=== PATIENT | male | born 1965 | race Caucasian/White ===

== ENCOUNTER 2018-01-23 10:03 | Emergency (ER) | payer MEDICARE, OTHER ==
[~2018-01-23] VITALS: Ht 195.6 cm; Wt 120.0 kg
[~2018-01-23 10:03] MED LIST: CLOT15CR5 TOP; GABA-338 PO; NORCO10T PO; OXYC5CAP19 PO; WHEE1EAC12 MC
[2018-01-23] MEDS ORDERED: proparacaine 0.5% ophthalmic drops 15ml RIGHTEYE ONE (10:55)
[2018-01-23] MEDS ORDERED: GENT5DRO4 EACHEYE (11:53)
[2018-01-23 12:20] VITALS: BP 154/81
== END 2018-01-23 12:21 | disposition home or self-care (01) ==
LOC: ER 10:03
DX: T15.01XA Foreign body in cornea, right eye, initial encounter (principal); G89.29 Other chronic pain; Z90.49 Acquired absence of other specified parts of digestive tract; Z98.890 Other specified postprocedural states; Z79.899 Other long term (current) drug therapy; W45.8XXA Other foreign body or object entering through skin, initial encounter; Y93.89 Activity, other specified; Y92.89 Other specified places as the place of occurrence of the external cause; Y99.8 Other external cause status
CPT/HCPCS: 65220; 99284

== ENCOUNTER 2018-11-28 17:28 | Emergency (ER) | payer MEDICARE, OTHER ==
[~2018-11-28] VITALS: Ht 195.6 cm; Wt 136.4 kg
[~2018-11-28 17:28] MED LIST changes: +GENT5DRO4 EACHEYE
--- NOTE | 2018-11-28 17:55 | NUR ---
PATIENT STATED THAT HE WAS "MESSING WITH THE CAST AFTER GETTING IT WET"
--- NOTE | 2018-11-28 18:56 | NUR ---
PT REPORTS TO ME THAT HE IS LEAVING AT 1900. OJ [place] NOTIFIED.
[2018-11-28] MEDS ORDERED: ketorolac trometh inj. 60 MG/2 ML VIAL IM ONE (19:05)
[2018-11-28] MEDS ORDERED: oxyCODONE/APAP 10/325mg tablet PO ONE (19:35)
[2018-11-28 20:06] VITALS: BP 159/66
== END 2018-11-28 21:34 | disposition home or self-care (01) ==
LOC: ER 17:29
DX: L76.82 Other postprocedural complications of skin and subcutaneous tissue (principal); G89.29 Other chronic pain; F17.200 Nicotine dependence, unspecified, uncomplicated; Z90.49 Acquired absence of other specified parts of digestive tract; Z98.890 Other specified postprocedural states; Z79.899 Other long term (current) drug therapy; Y83.8 Other surgical procedures as the cause of abnormal reaction of the patient, or of later complication, without mention of misadventure at the time of the procedure; Y92.89 Other specified places as the place of occurrence of the external cause
CPT/HCPCS: 29515; 73620; 96372; 99284; J1885

== ENCOUNTER 2019-01-10 21:37 | Emergency (ER) | payer MEDICARE ==
[~2019-01-10] VITALS: Ht 195.6 cm; Wt 143.2 kg
[2019-01-10 22:53] LABS: ALANINE AMINOTRANSFERASE 33 U/L (12-78); ALBUMIN 3.9 G/DL (3.4-5.0); ALBUMIN/GLOBULIN RATIO 0.9 (1.1-1.5); ALKALINE PHOSPHATASE 117 IU/L (46-116); ANION GAP 11 (8-16); ASPARTATE AMINO TRANSFERASE 18 U/L (10-37); BILIRUBIN,TOTAL 0.3 MG/DL (0.1-1.0); BLOOD UREA NITROGEN 29 MG/DL (7-18); BUN/CREATININE RATIO 20.7 (5.4-32.0); CALCIUM 9.6 MG/DL (8.5-10.1); CHLORIDE 99 MMOL/L (99-107); GLUCOSE 128 MG/DL (70-104); POTASSIUM 4.3 MMOL/L (3.5-5.1); SODIUM 137 MMOL/L (135-145); TOTAL CARBON DIOXIDE 26.9 MMOL/L (24-32); TOTAL PROTEIN 8.2 G/DL (6.4-8.2); eGFR 53 ML/MIN
[2019-01-10 22:53] LABS: BASOPHILS # (AUTO) 0.1 X10'3 (0-0.2); EOSINOPHILS # (AUTO) 0.5 X10'3 (0-0.9); EOSINOPHILS % (AUTO) 3.9 % (0-6); HEMATOCRIT 40.4 % (42.0-52.0); HEMOGLOBIN 13.6 g/dl (14.0-17.9); LYMPHOCYTES # (AUTO) 3.9 X10'3 (1.1-4.8); LYMPHOCYTES % (AUTO) 33.8 % (21-51); MEAN CORPUSCULAR HEMOGLOBIN 29.7 PG (27.0-31.0); MEAN CORPUSCULAR HGB CONC 33.7 g/dL (33.0-36.5); MEAN CORPUSCULAR VOLUME 88.2 FL (78-98); MEAN PLATELET VOLUME 8.2 FL (7.4-10.4); MONOCYTES # (AUTO) 0.7 X10'3 (0-0.9); MONOCYTES % (AUTO) 6.5 % (2-12); NEUTROPHILS # (AUTO) 6.3 X10'3 (1.8-7.7); NEUTROPHILS % (AUTO) 54.8 % (42-75); PLATELET COUNT 417 X10'3 (140-440); RED BLOOD COUNT 4.58 X10'6 (4.70-6.10); RED CELL DISTRIBUTION WIDTH 14.3 % (11.5-14.5); WHITE BLOOD COUNT 11.5 X10'3 (4.5-11.0)
[2019-01-10 23:00] LABS: PARTIAL THROMBOPLASTIN TIME 30 SECONDS (22-32)
[2019-01-10 23:59] VITALS: BP 132/76
== END 2019-01-11 00:03 | disposition home or self-care (01) ==
LOC: ER 21:38
DX: L08.89 Other specified local infections of the skin and subcutaneous tissue (principal); M79.671 Pain in right foot; G89.29 Other chronic pain; L97.519 Non-pressure chronic ulcer of other part of right foot with unspecified severity; Z90.49 Acquired absence of other specified parts of digestive tract; Z98.890 Other specified postprocedural states; Z79.899 Other long term (current) drug therapy
CPT/HCPCS: 36415; 80053; 84145; 85025; 85610; 85730; 87040; 93005; 99284

== ENCOUNTER 2019-05-19 15:06 | Emergency (ER) | payer MEDICARE ==
[~2019-05-19] VITALS: Ht 182.9 cm; Wt 154.6 kg
[2019-05-19 15:23] LABS: CLARITY,URINE SLIGHTLY CLOUDY (Clear); COLOR,URINE YELLOW (Yellow); GLUCOSE, URINE NEGATIVE (Neg); KETONES,URINE NEGATIVE (Neg); LEUKOCYTE ESTERASE ,URINE SMALL (Neg); NITRITES, URINE NEGATIVE (Neg); OCCULT BLOOD,URINE LARGE (Neg); PROTEIN,URINE NEGATIVE (Neg); UROBILINOGEN,URINE 0.2 E.U/dL (0.2-1.0)
[2019-05-19 15:26] LABS: UA COLLECTION TYPE VOIDED
[2019-05-19 15:34] LABS: BACTERIA,URINE 1+ /HPF (Neg); SQUAMOUS EPITHELIAL CELL,UR MODERATE /LPF (FEW)
[2019-05-19 15:35] LABS: WBC CLUMPS,URINE FEW /HPF (NEGATIVE)
[2019-05-19 15:36] LABS: MUCUS STRANDS FEW /LPF (Neg)
[2019-05-19] MEDS ORDERED: diphenhydrAMINE 25mg capsule PO ONE (15:55)
[2019-05-19] MEDS ORDERED: ketorolac tromethamine 15mg/ml inj. IM ONE (15:55)
[2019-05-19] MEDS ORDERED: proCHLORperazine 10 MG/2 ml inj IM ONE (15:55)
[2019-05-19] MEDS ORDERED: CEPH-572 PO (16:35)
[2019-05-19 16:46] VITALS: BP 158/74
== END 2019-05-19 16:47 | disposition home or self-care (01) ==
LOC: ER 15:06
DX: N39.0 Urinary tract infection, site not specified (principal); R31.9 Hematuria, unspecified; I10 Essential (primary) hypertension; G89.29 Other chronic pain; Z90.49 Acquired absence of other specified parts of digestive tract; Z98.890 Other specified postprocedural states
CPT/HCPCS: 81001; 87088; 96372; 99284; J0780; J1885; Q0163

== ENCOUNTER 2019-05-31 01:21 | Emergency (ER) | payer MEDICARE ==
[~2019-05-31] VITALS: Ht 195.6 cm; Wt 133.0 kg
--- NOTE | 2019-05-31 01:53 | NUR ---
pt requesting water and something for the pain before he urinates. advised pt that I was unable to give him anything for pain until the doctor sees him.
[2019-05-31 02:17] LABS: CLARITY,URINE SLIGHTLY CLOUDY (Clear); COLOR,URINE YELLOW (Yellow); GLUCOSE, URINE NEGATIVE (Neg); KETONES,URINE NEGATIVE (Neg); LEUKOCYTE ESTERASE ,URINE SMALL (Neg); NITRITES, URINE NEGATIVE (Neg); OCCULT BLOOD,URINE TRACE-INTACT (Neg); PH,URINE 5.5 (4.8-8.0); PROTEIN,URINE 30 mg/dl (Neg); UROBILINOGEN,URINE 0.2 E.U/dL (0.2-1.0)
[2019-05-31] MEDS ORDERED: LIDOcaine 2% 10ml TOPICAL JELLY (Urojet) MM ONE (02:30)
[2019-05-31 02:31] LABS: UA COLLECTION TYPE VOIDED
[2019-05-31 02:34] LABS: MUCUS STRANDS MANY /LPF (Neg); SQUAMOUS EPITHELIAL CELL,UR MODERATE /LPF (FEW)
[2019-05-31 02:36] LABS: RBC,URINE 0-2 /HPF (0-2); WBC,URINE 20-30 /HPF (0-4)
[2019-05-31 02:37] LABS: BACTERIA,URINE FEW /HPF (Neg)
[2019-05-31 03:01] LABS: BASOPHILS % (AUTO) 0.5 % (0-1); EOSINOPHILS # (AUTO) 0.1 X10'3 (0-0.9); EOSINOPHILS % (AUTO) 1.2 % (0-6); HEMATOCRIT 40.1 % (42.0-52.0); HEMOGLOBIN 13.7 g/dl (14.0-17.9); LYMPHOCYTES # (AUTO) 1.3 X10'3 (1.1-4.8); LYMPHOCYTES % (AUTO) 13.6 % (21-51); MEAN CORPUSCULAR HEMOGLOBIN 31.1 PG (27.0-31.0); MEAN CORPUSCULAR HGB CONC 34.1 g/dL (33.0-36.5); MEAN CORPUSCULAR VOLUME 91.3 FL (78-98); MEAN PLATELET VOLUME 8.2 FL (7.4-10.4); MONOCYTES # (AUTO) 0.8 X10'3 (0-0.9); MONOCYTES % (AUTO) 8.2 % (2-12); NEUTROPHILS # (AUTO) 7.1 X10'3 (1.8-7.7); NEUTROPHILS % (AUTO) 76.5 % (42-75); PLATELET COUNT 231 X10'3 (140-440); RED BLOOD COUNT 4.39 X10'6 (4.70-6.10); WHITE BLOOD COUNT 9.2 X10'3 (4.5-11.0)
--- NOTE | 2019-05-31 03:09 | NUR ---
pt requesting dilaudid - informed pt we don't carry dilaudid in the ER - he then requests Tylenol or iburpofen or excedrin.
[2019-05-31 03:13] LABS: ALANINE AMINOTRANSFERASE 57 U/L (12-78); ALBUMIN 3.4 G/DL (3.4-5.0); ALBUMIN/GLOBULIN RATIO 0.9 (1.1-1.5); ALKALINE PHOSPHATASE 84 IU/L (46-116); ANION GAP 8 (8-16); ASPARTATE AMINO TRANSFERASE 28 U/L (10-37); BILIRUBIN,TOTAL 0.7 MG/DL (0.1-1.0); BLOOD UREA NITROGEN 16 MG/DL (7-18); BUN/CREATININE RATIO 10.8 (5.4-32.0); CALCIUM 8.7 MG/DL (8.5-10.1); CHLORIDE 98 MMOL/L (99-107); CREATININE 1.48 MG/DL (0.60-1.10); GLUCOSE 118 MG/DL (70-104); POTASSIUM 4.6 MMOL/L (3.5-5.1); SODIUM 133 MMOL/L (135-145); TOTAL CARBON DIOXIDE 26.8 MMOL/L (24-32); TOTAL PROTEIN 7.3 G/DL (6.4-8.2); eGFR 50 ML/MIN
[2019-05-31] MEDS ORDERED: phenazopyridine 100mg tablet PO ONE (03:45)
[2019-05-31] MEDS ORDERED: ciprofloxacin 250mg tablet PO ONE (03:45)
[2019-05-31] MEDS ORDERED: PHEN-716 PO (04:04)
[2019-05-31] MEDS ORDERED: CIPR-230 PO (04:04)
[2019-05-31 04:14] VITALS: BP 148/78
== END 2019-05-31 04:10 | disposition home or self-care (01) ==
LOC: ER 01:22
DX: N39.0 Urinary tract infection, site not specified (principal); I10 Essential (primary) hypertension; G89.29 Other chronic pain; Z90.49 Acquired absence of other specified parts of digestive tract; Z98.890 Other specified postprocedural states; Z79.899 Other long term (current) drug therapy; Z79.2 Long term (current) use of antibiotics
CPT/HCPCS: 36415; 80053; 81001; 85025; 87088; 99284

== ENCOUNTER 2019-07-09 21:43 | Emergency (ER) | payer MEDICARE ==
[~2019-07-09] VITALS: Ht 193 cm; Wt 150.0 kg
[~2019-07-09 21:43] MED LIST changes: +PHEN-716 PO
[2019-07-09] MEDS ORDERED: sulfamethoxazole/trimethoprim DS (800/160mg) tablet PO ONE (22:50)
[2019-07-09] MEDS ORDERED: BACDS PO (22:51)
[2019-07-10 00:10] VITALS: BP 173/101
== END 2019-07-10 00:17 | disposition home or self-care (01) ==
LOC: ER 21:44
DX: R60.0 Localized edema (principal); L53.9 Erythematous condition, unspecified; I10 Essential (primary) hypertension; G89.29 Other chronic pain; Z90.49 Acquired absence of other specified parts of digestive tract; Z98.890 Other specified postprocedural states; Z79.2 Long term (current) use of antibiotics; Z79.899 Other long term (current) drug therapy
CPT/HCPCS: 99283

== ENCOUNTER 2019-08-01 00:38 | Emergency (ER) | payer MEDICARE ==
[~2019-08-01] VITALS: Ht 195.6 cm; Wt 143.0 kg
[2019-08-01 00:55] VITALS: BP 165/85
== END 2019-08-01 04:46 | disposition home or self-care (01) ==
LOC: ER 00:38
DX: R22.42 Localized swelling, mass and lump, left lower limb (principal); I10 Essential (primary) hypertension; G89.29 Other chronic pain; Z98.890 Other specified postprocedural states; Z90.49 Acquired absence of other specified parts of digestive tract
CPT/HCPCS: 29515; 93971; 99284

== ENCOUNTER 2021-12-17 01:46 | Emergency (ER) | payer BC, MEDICARE ==
[~2021-12-17] VITALS: Ht 195.6 cm; Wt 145.4 kg
[~2021-12-17 01:46] MED LIST changes: +ALBU8.5H17 INH; +ATOR20TA10 PO; -CLOT15CR5 TOP; -GABA-338 PO; -GENT5DRO4 EACHEYE; +LOSA1TAB9 PO; -NORCO10T PO; -OXYC5CAP19 PO; -PHEN-716 PO; -WHEE1EAC12 MC
[2021-12-17] MEDS ORDERED: ofloxacin 0.3% 5ml otic drops RIGHT EAR STA (02:09)
[2021-12-17] MEDS ORDERED: OFLO5DRO5 RIGHT EAR (02:11)
[2021-12-17] MEDS ORDERED: IBUP-1984 PO (02:29)
[2021-12-17] MEDS ORDERED: ibuprofen tablet 400 MG TABLET PO ONE (02:30)
[2021-12-17 02:31] VITALS: BP 130/92
--- NOTE | 2021-12-17 02:47 | NUR ---
Pharmacy out of ear drops, Carlie made aware. Patient to be discharged without being medicated, will mushroom picker his ear drops at his pharmacy in the morning.
== END 2021-12-17 02:50 | disposition home or self-care (01) ==
LOC: ER 01:46
DX: H72.91 Unspecified perforation of tympanic membrane, right ear (principal); H92.01 Otalgia, right ear; I10 Essential (primary) hypertension; G89.29 Other chronic pain; Z90.89 Acquired absence of other organs; Z90.49 Acquired absence of other specified parts of digestive tract; Z98.890 Other specified postprocedural states; Z72.89 Other problems related to lifestyle; Z79.2 Long term (current) use of antibiotics; Z79.899 Other long term (current) drug therapy
CPT/HCPCS: 99283

== ENCOUNTER 2023-04-28 12:09 | Day surgery (SDC) | payer MEDICARE, MEDICAID ==
[2023-04-24 08:57] LABS: BASOPHILS % (AUTO) 0.5 % (0-1); EOSINOPHILS # (AUTO) 0.1 X10'3 (0-0.9); EOSINOPHILS % (AUTO) 1.9 % (0-6); HEMATOCRIT 36.2 % (42.0-52.0); HEMOGLOBIN 12.2 g/dl (14.0-17.9); LYMPHOCYTES # (AUTO) 1.7 X10'3 (1.1-4.8); LYMPHOCYTES % (AUTO) 24.5 % (21-51); MEAN CORPUSCULAR HEMOGLOBIN 32.1 PG (27.0-31.0); MEAN CORPUSCULAR HGB CONC 33.8 g/dL (33.0-36.5); MEAN CORPUSCULAR VOLUME 94.9 FL (78-98); MONOCYTES # (AUTO) 0.5 X10'3 (0-0.9); MONOCYTES % (AUTO) 7.5 % (2-12); NEUTROPHILS # (AUTO) 4.6 X10'3 (1.8-7.7); NEUTROPHILS % (AUTO) 65.6 % (42-75); PLATELET COUNT 300 X10'3 (140-440); RED BLOOD COUNT 3.82 X10'6 (4.70-6.10); RED CELL DISTRIBUTION WIDTH 15.7 % (11.5-14.5)
[2023-04-24 09:08] LABS: APTT 34 SECONDS (22-32)
[2023-04-24 09:21] LABS: ALBUMIN 3.6 G/DL (3.4-5.0); ANION GAP 11 (8-16); BLOOD UREA NITROGEN 32 MG/DL (7-18); BUN/CREATININE RATIO 19.3 (10.0-20.0); CALCIUM 9.4 MG/DL (8.5-10.1); CHLORIDE 99 MMOL/L (99-107); CREATININE 1.66 MG/DL (0.60-1.10); GLUCOSE 96 MG/DL (70-104); POTASSIUM 3.7 MMOL/L (3.5-5.1); SODIUM 138 MMOL/L (135-145); TOTAL CARBON DIOXIDE 27.6 MMOL/L (24-32); eGFR 43 ML/MIN
[~2023-04-28] VITALS: Ht 195.6 cm; Wt 133.4 kg
[2023-04-28] VITALS (13 sets, daily range): BP systolic 142–158; BP diastolic 77–98; PULSE 87–114; RESP 14–16; TEMP 98.3; O2SAT 92–100
[~2023-04-28 12:09] MED LIST changes: +LOSA-422 PO; -LOSA1TAB9 PO; +OFLO5DRO5 RIGHT EAR
[2023-04-28] MEDS ORDERED: fentaNYL/PF 50MCG/1 ML 2ML syringe IV ONE (12:35)
[2023-04-28] MEDS ORDERED: MIDAZolam 1mg/ml 10ml vial IV ONE (12:35)
[2023-04-28] MEDS ORDERED: normal saline 1000ml 1,000 ML IV SCH (12:35)
[2023-04-28] MEDS ORDERED: FLO0.4C PO (12:58)
[2023-04-28] MEDS ORDERED: LOSA25TA41 PO (13:01)
[2023-04-28] MEDS ORDERED: METO5TAB7 PO (13:01)
[2023-04-28] MEDS ORDERED: FLUT1BLS4 INH (13:01)
[2023-04-28] MEDS ORDERED: PRAV10TA39 PO (13:01)
[2023-04-28] MEDS ORDERED: PANT40TA54 PO (13:02)
[2023-04-28] MEDS ORDERED: TRAZ-256 PO (13:02)
[2023-04-28] MEDS ORDERED: MULT-1085 PO (13:03)
[2023-04-28] MEDS ORDERED: FURO40TA4 PO (13:04)
[2023-04-28] MEDS ORDERED: FERR325T28 PO (13:05)
[2023-04-28] MEDS ORDERED: APIX5TAB3 PO (13:06)
[2023-04-28] MEDS ORDERED: FAMO20TA8 PO (13:06)
[2023-04-28] MEDS ORDERED: CHOL10008 PO (13:07)
[2023-04-28] MEDS ORDERED: AMI200T PO (13:08)
[2023-04-28] MEDS ORDERED: METO-384 PO (13:08)
[2023-04-28] MEDS ORDERED: ASCO500C17 PO (13:10)
== END 2023-04-28 15:45 | disposition home or self-care (01) ==
LOC: SSTAY O 12:09
PROVIDERS: ATTEND Student in an Organized Health Care Education/Training Program
DX: I48.91 Unspecified atrial fibrillation (principal); I13.0 Hypertensive heart and chronic kidney disease with heart failure and stage 1 through stage 4 chronic kidney disease, or unspecified chronic kidney disease; I50.9 Heart failure, unspecified; N18.9 Chronic kidney disease, unspecified; I48.92 Unspecified atrial flutter; E78.5 Hyperlipidemia, unspecified; I35.0 Nonrheumatic aortic (valve) stenosis; I65.29 Occlusion and stenosis of unspecified carotid artery; Z95.2 Presence of prosthetic heart valve; F17.290 Nicotine dependence, other tobacco product, uncomplicated; Z79.01 Long term (current) use of anticoagulants; Z79.899 Other long term (current) drug therapy
CPT/HCPCS: 80048; 85025; 85610; 85730; 92960; 93005; J2250; J3010; J7030; A4620